=== PATIENT | female | born 1990 | race Caucasian/White ===

== ENCOUNTER 2018-07-18 20:18 | Emergency (ER) | payer OTHER ==
[2018-07-18 21:01] VITALS: TEMP 97.9
--- NOTE | 2018-07-18 21:15 | ED PDOC ---
HPI: General Adult Time Seen by Provider: 07/18/18 21:04 Chief Complaint (Nursing): GI Problem Chief Complaint (Provider): Hemorrhoid History Per: Patient History/Exam Limitations: no limitations Onset/Duration Of Symptoms: Days (yesterday) Additional Complaint(s): Pt. with hemorrhoid that she noticed yesterday. Is painful, but able to move stool with no issues. No bleeding. No weakness, abd pain, nausea, vomit, diarrhea. No numbness, tingles. No back pain. Has had similar in the past and went away after it burst open. Past Medical History Reviewed: Nursing Documentation, Vital Signs Vital Signs: Last Vital Signs Temp 97.9 F 07/18/18 20:57 Pulse 75 07/18/18 20:57 Resp 20 07/18/18 20:57 BP 152/107 H 07/18/18 20:57 Pulse Ox 100 07/18/18 20:57 - Medical History Other PMH: hemorrhoid - Surgical History Surgical History: No Surg Hx - Family History Family History: States: Unknown Family Hx - Living Arrangements Living Arrangements: With Family - Home Medications Home Medications: Ambulatory Orders Medication Instructions Recorded Hydrocortisone 2.5% (Rectal) 30 applic [place] BID 5 Days tube 07/18/18 [Anusol-HC] Ibuprofen [Motrin] 600 mg PO TID 7 Days tab 07/18/18 - Allergies Allergies/Adverse Reactions: Allergies Allergy/AdvReac Type Severity Reaction Status Date / Time No Known Allergies Allergy Verified 07/18/18 20:57 Review of Systems Constitutional: Negative for: Fever, Weakness Cardiovascular: Negative for: Chest Pain Respiratory: Negative for: Shortness of Breath Gastrointestinal: Positive for: Rectal Pain. Negative for: Nausea, Vomiting, Abdominal Pain, Diarrhea Neurological: Negative for: Weakness Physical Exam - Reviewed Nursing Documentation Reviewed: Yes Vital Signs Reviewed: Yes - Physical Exam Neck: Positive for: Normal Cardiovascular/Chest: Positive for: Regular Rate, Rhythm Respiratory: Positive for: CNT, Normal Breath Sounds Gastrointestinal/Abdominal: Positive for: Normal Exam, Bowel Sounds, Soft. Negative for: Tenderness Back: Positive for: Normal Inspection. Negative for: L CVA Tenderness, R CVA Tenderness Rectal: Positive for: Hemorrhoids (3pm with moderate size hemorrhoid with tenderness; no bleeding or dc) - ECG O2 Sat by Pulse Oximetry: 100 Pulse Ox Interpretation: Normal - Progress ED Course And Treament: 920: Stable. Will fu with pcp and surgery for further eval and tx. Disposition - Clinical Impression Clinical Impression: Abnormal blood pressure, External hemorrhoid - Patient ED Disposition Is Patient to be Admitted: No Counseled Patient/Family Regarding: Diagnosis, Need For Followup, Rx Given - Disposition Referrals: [facility] [Outside] - 07/19/18 Lei Gay MD [Staff Provider] - 07/19/18 Disposition: Routine/Home Disposition Time: 21:15 Condition: STABLE Additional Instructions: Return if not better in 3 days. Prescriptions: Hydrocortisone 2.5% (Rectal) [Anusol-HC] 30 applic [place] BID 5 Days tube Ibuprofen [Motrin] 600 mg PO TID 7 Days tab Instructions: Hypertension (ED), Hemorrhoids Forms: [facility] (Ukrainian), [facility] School/Work Excuse
[2018-07-19 05:22] VITALS: BP 139/70; PULSE 80; RESP 16; O2SAT 99
== END 2018-07-18 22:20 | disposition home or self-care (01) ==
LOC: H.ER 20:18
DX: I10 Essential (primary) hypertension (principal); K64.8 Other hemorrhoids